=== PATIENT | male | born 1955 | race Caucasian/White ===

== ENCOUNTER 2017-08-16 01:18 | Emergency (ER) | payer MEDICARE | END 2017-08-16 02:59 | disposition home or self-care (01) | LOC: D.ER 01:18 | DX: S20.219A Contusion of unspecified front wall of thorax, initial encounter (principal); S90.01XA Contusion of right ankle, initial encounter; V43.52XA Car driver injured in collision with other type car in traffic accident, initial encounter; Y93.89 Activity, other specified; Y92.410 Unspecified street and highway as the place of occurrence of the external cause ==